=== PATIENT | male | born 1955 | race Hispanic/Latino ===

== ENCOUNTER 2020-06-22 10:13 | Emergency (ER) | payer OTHER, MEDICARE ==
[~2020-06-22] VITALS: Ht 177.8 cm; Wt 122.0 kg
--- NOTE | 2020-06-22 10:29 | Emergency Department Note ---
History of Present Illnes History of Present Illness Chief Complaint: Extremity Trauma/Pain History of Present Illness This is a 65 year old male, with a history of hypertension, hyperlipidemia, NIDDM, ASCVD status post stent placement, and TIA, who presents with a one-week history of left knee pain. Patient denies any known trauma or previous history of knee injury. Patient is complaining of pain on the lateral aspect of the left knee, that is worse with weightbearing. Patient was seen by his PCP 3 days ago, and had a Kenalog injection in the left knee, without any relief of his symptoms. He was also prescribed tramadol with acetaminophen, that has not alleviated his pain. He denies any fever, chills, nausea, vomiting, numbness, or tingling of the left lower extremity. Patient does admit to occasional left hip pain, as well. Historian: Patient, Family Member (spouse) Arrival Mode: Car Onset (how long ago): week(s) (1) Location: left knee Quality: throbbing, aching; Radiation: Reports non-radiation Severity: severe Onset quality: sudden Duration (how long): week(s) (1) Timing of current episode: constant Progression: unchanged Chronicity: new Context: Denies trauma/injury Relieving factors: none Exacerbating factors: none Associated symptoms: Denies chest pain, Denies fever/chills, Denies nausea/vomiting Treatments prior to arrival: none, other (Tramadol) Risk factors: obesity Past Medical/Family History Physician Review I have reviewed the patient's past medical and family history. Any updates have been documented here. Past Medical History Recent Fever: No Clinical Suspicion of Infectio: No New/Unexplained Change in Ment: No Past Medical History: Hypertension, Diabetes (NIDDM), TIA, Hyperlipedemia Other Medical History: ACVD s/p stent placement x 2; Past Surgical History: Cataract Removal (bilateral) Social History Smoking Cessation: Never Smoker Alcohol Use: Occasional Any Illegal Drug Use: No TB Exposure/Symptoms: No Physically hurt or threatened: No Family History Family history of heart diseas: No Other Any Pre-Existing Lines (PICC,: No Review of Systems Review of Systems Constitutional: Denies chills, Denies fever EENTM: Reports no symptoms Cardiovascular: Denies chest pain, Denies palpitations Respiratory: Denies cough, Denies dyspnea Gastrointestinal: Denies nausea, Denies vomiting Genitourinary: Reports no symptoms Musculoskeletal: Reports joint pain (left knee), Reports joint swelling (left knee); Denies back pain Integumentary: Denies change in color, Denies rash Neurological: Denies numbness, Denies tingling, Denies weakness Psychological: Reports as per HPI Endocrine: Reports as per HPI Hematological/Lymphatic: Reports as per HPI Review of other systems: All other systems negative Physical Exam Related Data Vital signs reviewed: Yes Physical Exam CONSTITUTIONAL Constitutional: Present well-developed, Present well-nourished, Present morbidly obese, Present other (in WC, due to pain on weight bearing;); Absent distressed, Absent ill appearing HENT HENT: Present normocephalic, Present atraumatic, Present oropharynx clear/moist, Present nose normal HENT L/R: Present left ext ear normal, Present right ext ear normal EYES Eyes: Reports PERRL, Reports conjunctivae normal NECK Neck: Present ROM normal PULMONARY Pulmonary: Present effort normal, Present breath sounds normal CARDIOVASCULAR Cardiovascular: Present regular rhythm, Present heart sounds normal, Present capillary refill normal, Present normal rate GASTROINTESTINAL GENITOURINARY Genitourinary: Present exam deferred SKIN Skin: Present warm, Present dry; Absent rash MUSCULOSKELETAL Musculoskeletal: Present ROM normal, Present tenderness (ttp of lateral aspect of left knee, adjacent to the lateral patella; no warmth or significant edema; no crepitus, neg anterior drawer sign; ); Absent edema NEUROLOGICAL PSYCHOLOGICAL Assessment & Plan Medical Decision Making MDM - Explained to patient and , that there is not much here today in the ER, to further evaluate his knee pain. An x-ray is unlikely to be helpful. Patient's has already received a steroid injection in the left knee, and he is a diabetic, so systemic steroids can be problematic. I contacted Dr. Chana Segura's office, Orthopedics, who can see patient in his office tomorrow. X-rays were deferred, as they will be done with the orthopedic office tomorrow. An ice pack was applied to the left knee here in the ED, and secured by an Drew wrap, which provided significant relief of his pain. Other medications, per discharge instructions. - Recommend that you apply ice to the left knee for 15-20 minutes multiple times throughout the day, to help with pain and inflammation. - He may take either the tramadol or the Tylenol 3, as needed for pain. - Recommend that you start the Gabapentin 100 mg - 3 times per day, to better help manage the pain. This medication may make you drowsy, and that side effects should improve after several days. If the medication makes you too sleepy during the day, you may take 2 tablets at bedtime for 3 days, then increase to 3 tablets at bedtime. - Follow up with Orthopedics, Dr. Chana Segura, at 11:30 am tomorrow, for futher evaluation of your pain. See your d/c papers, for contact information. Assessment & Plan Final Impression: (1) Knee pain, left (2) Diabetes (3) History of ASCVD (4) Hx of chcf use of blood thinners (5) Hypertension (6) Hyperlipidemia Depart Disposition: HOME, SELF-intermediate Meds Active Scripts Gabapentin (GABAPENTIN) 100 Mg Capsule, 1 TAB PO TID for pain, #90 TAB 0 Refills Prov:TORRIE ORNELAS MD 06/22/20 Acetaminophen/Codeine* (TYLENOL # 3*) 1 Ea Tab, 1-2 TAB PO Q6H PRN for pain and inflammation, #20 TAB 0 Refills Prov:TORRIE ORNELAS MD 06/22/20 TORRIE ORNELAS MD Jun 22, 2020 10:29
[2020-06-22] MEDS ORDERED: TYLENOL # 31 EA PO (11:13)
[2020-06-22] MEDS ORDERED: GABAPENTIN100 MG PO (11:15)
--- OUTSIDE RECORDS SUMMARY | 2020-06-22 11:19 | XMS REPORT | Clinical Summary ---
Author Author SELVIN Sojo StudiosMadison Memorial HospitalRepair ReportOrlando Health [facility] Address Unknown Phone Unavailable Care Team Providers Care Tree Warden Name Role Phone Og Gomez MD PCP Allergies Comments Active Allergy Reactions Severity Noted Date Penicillins Rash Low 04/23/2019 Medications End Date Status Medication Sig Dispensed Refills Start Date Active aspirin 81 MG chewable Take 81 mg by 0 tablet mouth daily. Active atorvastatin (LIPITOR) 40 Take 40 mg by 0 MG tablet mouth daily. Active metFORMIN (GLUCOPHAGE) Take 1,000 mg 0 1000 MG tablet by mouth 2 (two) times daily with breakfast and dinner. Active glipiZIDE (GLUCOTROL) 10 Take 10 mg by 0 MG tablet mouth daily . Active linaGLIPtin (TRADJENTA) 5 Take 5 mg by 0 mg Tab mouth daily. Active icosapent ethyl (VASCEPA) Take 2 g by 0 1 gram Cap mouth 2 (two) times daily. Active cholecalciferol, vitamin Take by 0 D3, 2,000 unit Cap mouth. Active telmisartan (MICARDIS) 80 Take 80 mg by 0 MG tablet mouth daily. Active ticagrelor (BRILINTA) 90 Take 1 tablet 180 tablet 4 04/24/201 mg Tab tablet (90 mg total) 9 by mouth 2 (two) times daily. Active Problems Problem Noted Date Ischemia of anterior segment 04/24/2019 Myocardial ischemia 04/24/2019 Positive cardiac stress test 04/24/2019 Overview: Severe anterior ischemia Social History Date Tobacco Use Types Packs/Day Years Used Former Smoker Smokeless Tobacco: Never Used Drinks/Week oz/Week Comments Alcohol Use once per week Yes Sex Assigned at Date Recorded Not on file Last Filed Vital Signs Not on file Plan of Treatment Health Maintenance Due Date Last Done Comments COLON CANCER SCREENING 1955 COLONOSCOPY LIPID PANEL 06/02/2017 06/02/2014 PNEUMOCOCCAL 65+ YRS (1 2020 of 1 - [id number]) INFLUENZA VACCINE (#1) 2020 Implants Device Identifier Shelf Expiration Date Model / Serial / L ot Implanted Type Area Manufactur er [id number] 02/03/2021 [id number] / / [id number] Stent Synergy Otw [id number] IMPLANTS Left: Coronary GATO STON [id number] - [id number] SCI:INTERV Implanted: Qty: 1 on 04/23/2019 by CARDIOLOGY Adonis Heaton MD at [facility] Results Not on fileafter 06/22/2019 Insurance Type Payer Benefit Subscriber ID Effective Phone Address Plan / Dates Group Medicare MEDICARE MEDICARE [id number] [id number] PART A resent HMO/POS CIGNA - MGD CARE CIGNA [id number] 2015- HMO/POS/OP Present EN ACCESS [id number] Advance Directives For more information, please contact: [phone] Date Inactivated Comments Code Status Date Activated 04/24/2019 1:59 PM Full Code 04/23/2019 6:40 AM This code status was determined by: Patient
--- OUTSIDE RECORDS SUMMARY | 2020-06-22 11:19 | XMS REPORT | Continuity of Care Document ---
Author Author [facility] t Organization [facility] Address [address] [place] [address] Phone Unavailable Care Team Providers Care Infrastructure Architect Name Role Phone Jason VALADEZ, Og PCP KELLI HUNTER Attphys Unavailable KELLI HUNTER Admphys Unavailable Problems Condition Name Condition Details Condition Category Status Onset Date Resolution Date Last Treatment Date Treating Clinician Comments Source Ischemia of anterior segment Ischemia of anterior segment Disease Active 2019-04-24 00:00:00 [facility] Myocardial ischemia Myocardial ischemia Disease Active 2019-04-24 00:00 :00 [facility] [place] [facility] Positive cardiac stress test Positive cardiac stress test Disease Active 2019-04-24 00:00:00 Overview: Severe ante rior ischemia [facility] Allergies, Adverse Reactions, Alerts Allergy Name Allergy Type Status Severity Reaction(s) Onset Date Inacti ve Date Treating Clinician Comments Source Penicillins Drug Allergy Active Rash 2019-04-23 00:00:00 [facility] Social History Social Habit Start Date Stop Date Quantity Comments Source Sex Assigned At [facility] Tobacco use and exposure 2019-04-26 00:00:00 2019-04-26 00:00:00 Luis Eduardo r used [facility] Alcohol intake 2019-04-26 00:00:00 2019-04-26 00:00:00 Current drinker of alcohol (finding) [facility] Alcohol Comment 2019-04-23 00:00:00 2019-04-23 00:00:00 once per week [facility] Smoking Status Start Date Stop Date Source Former smoker 2019-04-26 00:00:00 2019-04-26 00:00:00 [facility] Medications Ordered Medication Name Filled Medication Name Start Date Stop Da te Current Medication? Ordering Clinician Indication Dosage Frequency Signature (SIG) Comments Components Source aspirin 81 MG chewable tablet 2019-04-24 11:59:18 Yes 81mg QD Take 81 mg by mouth daily. [facility] atorvastatin (LIPITOR) 40 MG tablet 2019-04-24 11:59:18 Yes 40mg QD Take 40 mg by mouth daily. [facility] metFORMIN (GLUCOPHAGE) 1000 MG tablet 2019-04-24 11:59:18 Y es 1000mg Take 1,000 mg by mouth 2 (two) times daily with breakfast and dinner. [facility] glipiZIDE (GLUCOTROL) 10 MG tablet 2019-04-24 11:59:18 Yes 10mg QD Take 10 mg by mouth daily . [facility] linaGLIPtin (TRADJENTA) 5 mg Tab 2019-04-24 11:59:18 Yes 5mg QD Take 5 mg by mouth daily. [facility] icosapent ethyl (VASCEPA) 1 gram Cap 2019-04-24 11:59:18 Ye s 2g Q.5D Take 2 g by mouth 2 (two) times daily. [facility] cholecalciferol, vitamin D3, 2,000 unit Cap 2019-04-24 11:59:18 Yes Take by mouth. [facility] telmisartan (MICARDIS) 80 MG tablet 2019-04-24 11:59:18 Yes 80mg QD Take 80 mg by mouth daily. [facility] ticagrelor (BRILINTA) 90 mg Tab tablet 2019-04-24 00:00:00 Yes 90mg Q.5D Take 1 tablet (90 mg total) by mouth 2 (two) times daily. [facility] Procedures This patient has no known procedures. Plan of Care Planned Activity Planned Date Details Comments Source Future Scheduled Test 2020-04-12 00:00:00 INFLUENZA VACCINE (#1) [code = [facility]ACCINE (#1[facility]00 PNEUMOCOCCAL 65+ Y RS (1 of 1 - [id number] PCV13) [code = PNEUMOCOCCAL 65+ YRS (1 of 1 - [id number] PCV13)] [facility] r Future Scheduled Test 2017-06-02 00:00:00 Lipid panel (proce dure) [code = 04698589] [facility] r Future Scheduled Test 1955 00:00:00 Screening for lisa gnant neoplasm of colon (procedure) [code = 213638578] [facility] Results Test Description Test Time Test Comments Results Result Comments Source POCT-GLUCOSE METER 2019-04-24 08:03:00 Test Item POC-GLUCOSE METER (BEAKER) (test code = 1538) 157 mg/dL 70-110 H TESTED AT [facility] [address] [place] [id number] 04:11:00* Test Item Value Reference Range Interpretation Comments MAGNESIUM (BEAKER) (test code = 627) 1.6 mg/dL 1.6-2.6 Specimen slightly hemolyzed BASIC METABOLIC [id number] 04:11:00* Test Item Value Reference Range Interpretation Comments SODIUM (BEAKER) (test code = 381) 137 meq/L 136-145 POTASSIUM (BEAKER) (test code = 379) 4.0 meq/L 3.5-5.1 Specimen slightly hemolyzed CHLORIDE (BEAKER) (test code = 382) 104 meq/L 98-107 CO2 (BEAKER) (test code = 355) 23 meq/L 22-29 BLOOD UREA NITROGEN (BEAKER) (test code = 354) 18 mg/dL 7-21 CREATININE (BEAKER) (test code = 358) 1.15 mg/dL 0.57-1.25 Specimen slightly hemolyzed GLUCOSE RANDOM (BEAKER) (test code = 652) 137 mg/dL 70-105 H CALCIUM (BEAKER) (test code = 697) 9.3 mg/dL 8.4-10.2 EGFR (BEAKER) (test code = 1092) 64 mL/min/1.73 sq m ESTIMATED GFR IS NOT ACCURATE CREATININE CLEARANCE IN PREDICTING GLOMERULAR FILTRATION RATE. ESTIMATED GFR IS NOT APPLICABLE FOR DIALYSIS PATIENTS. CBC (HEMOGRAM ONLY)2019-04-24 03:44:00* Test Item Value Reference Range Interpretation Comments WHITE BLOOD CELL COUNT (BEAKER) (test code = 775) 10.9 K/ L 3.5- 10.5 H RED BLOOD CELL COUNT (BEAKER) (test code = 761) 3.99 M/ L 4.63-6 .08 L HEMOGLOBIN (BEAKER) (test code = 410) 12.0 GM/DL 13.7-17.5 L HEMATOCRIT (BEAKER) (test code = 411) 35.4 % 40.1-51.0 L MEAN CORPUSCULAR VOLUME (BEAKER) (test code = 753) 88.7 fL 79. 0-92.2 MEAN CORPUSCULAR HEMOGLOBIN (BEAKER) (test code = 751) 30.1 pg 25.7-32.2 MEAN CORPUSCULAR HEMOGLOBIN CONC (BEAKER) (test code = 752) 33.9 GM/DL 32.3-36.5 RED CELL DISTRIBUTION WIDTH (BEAKER) (test code = 412) 13.1 % 11.6-14.4 PLATELET COUNT (BEAKER) (test code = 756) 202 K/CU MM 150-450 MEAN PLATELET VOLUME (BEAKER) (test code = 754) 10.3 fL 9.4-12 .4 NUCLEATED RED BLOOD CELLS (BEAKER) (test code = 413) 0 /100 WBC 0 -0 POCT-GLUCOSE [id number] 21:53:00* Test Item Value Reference Range Interpretation Comments POC-GLUCOSE METER (BEAKER) (test code = 1538) 137 mg/dL 70-110 H TESTED AT [facility] [address] [facility] [address] [id number] 18:19:00* Test Item Value Reference Range Interpretation Comments PARTIAL THROMBOPLASTIN TIME (BEAKER) (test code = 760) 80.2 seconds 22.5-36.0 H Draw baseline aPTT prior to infusionCBC (HEMOGRAM ONLY)2019-04-23 18:14:00* Test Item Value Reference Range Interpretation Comments WHITE BLOOD CELL COUNT (BEAKER) (test code = 775) 8.5 K/ L 3.5- 10.5 RED BLOOD CELL COUNT (BEAKER) (test code = 761) 3.72 M/ L 4.63-6 .08 L HEMOGLOBIN (BEAKER) (test code = 410) 11.3 GM/DL 13.7-17.5 L HEMATOCRIT (BEAKER) (test code = 411) 32.8 % 40.1-51.0 L MEAN CORPUSCULAR VOLUME (BEAKER) (test code = 753) 88.2 fL 79. 0-92.2 MEAN CORPUSCULAR HEMOGLOBIN (BEAKER) (test code = 751) 30.4 pg 25.7-32.2 MEAN CORPUSCULAR HEMOGLOBIN CONC (BEAKER) (test code = 752) 34.5 GM/DL 32.3-36.5 RED CELL DISTRIBUTION WIDTH (BEAKER) (test code = 412) 13.2 % 11.6-14.4 PLATELET COUNT (BEAKER) (test code = 756) 184 K/CU MM 150-450 MEAN PLATELET VOLUME (BEAKER) (test code = 754) 10.4 fL 9.4-12 .4 NUCLEATED RED BLOOD CELLS (BEAKER) (test code = 413) 0 /100 WBC 0 -0 [id number] 14:48:00* Test Item Value Reference Range Interpretation Comments ACTIVATED CLOTTING TIME (BEAKER) (test code = 441) 412 sec Reference Range: 74-137 seconds, Baseline/TESTED AT [facility] [address] [facility] [address] BASIC METABOLIC [id number] 08:03:00* Test Item Value Reference Range Interpretation Comments SODIUM (BEAKER) (test code = 381) 138 meq/L 136-145 POTASSIUM (BEAKER) (test code = 379) 3.9 meq/L 3.5-5.1 CHLORIDE (BEAKER) (test code = 382) 106 meq/L 98-107 CO2 (BEAKER) (test code = 355) 26 meq/L 22-29 BLOOD UREA NITROGEN (BEAKER) (test code = 354) 23 mg/dL 7-21 H CREATININE (BEAKER) (test code = 358) 1.26 mg/dL 0.57-1.25 H GLUCOSE RANDOM (BEAKER) (test code = 652) 111 mg/dL 70-105 H CALCIUM (BEAKER) (test code = 697) 9.0 mg/dL 8.4-10.2 EGFR (BEAKER) (test code = 1092) 58 mL/min/1.73 sq m ESTIMATED GFR IS NOT ACCURATE CREATININE CLEARANCE IN PREDICTING GLOMERULAR FILTRATION RATE. ESTIMATED GFR IS NOT APPLICABLE FOR DIALYSIS PATIENTS. PROTHROMBIN [id number] 07:57:00* Test Item Value Reference Range Interpretation Comments PROTIME (BEAKER) (test code = 759) 13.3 seconds 11.9-14.2 INR (BEAKER) (test code = 370) 1.1 <=5.9 Effective 01/07/2019: PT Reference Range ChangeNew: 11.9-14.2 Previous: 11.7-14. 7RECOMMENDED COUMADIN/WARFARIN INR THERAPY RANGESSTANDARD DOSE: 2.0-3.0 Include s: PROPHYLAXIS for venous thrombosis, systemic embolization; TREATMENT for venou s thrombosis and/or pulmonary embolus.HIGH RISK: Target INR is 2.5-3.5 for patie nts wiht mechanical heart valves.Within 24 hours, if on [id number] 07:57:00* Test Item Value Reference Range Interpretation Comments PARTIAL THROMBOPLASTIN TIME (BEAKER) (test code = 760) 31.7 seconds 22.5-36.0 Within 24 hours, if on CoumadinCBC (HEMOGRAM ONLY)2019-04-23 07:22:00* Test Item Value Reference Range Interpretation Comments WHITE BLOOD CELL COUNT (BEAKER) (test code = 775) 7.4 K/ L 3.5- 10.5 RED BLOOD CELL COUNT (BEAKER) (test code = 761) 3.79 M/ L 4.63-6 .08 L HEMOGLOBIN (BEAKER) (test code = 410) 11.4 GM/DL 13.7-17.5 L HEMATOCRIT (BEAKER) (test code = 411) 33.8 % 40.1-51.0 L MEAN CORPUSCULAR VOLUME (BEAKER) (test code = 753) 89.2 fL 79. 0-92.2 MEAN CORPUSCULAR HEMOGLOBIN (BEAKER) (test code = 751) 30.1 pg 25.7-32.2 MEAN CORPUSCULAR HEMOGLOBIN CONC (BEAKER) (test code = 752) 33.7 GM/DL 32.3-36.5 RED CELL DISTRIBUTION WIDTH (BEAKER) (test code = 412) 13.3 % 11.6-14.4 PLATELET COUNT (BEAKER) (test code = 756) 192 K/CU MM 150-450 MEAN PLATELET VOLUME (BEAKER) (test code = 754) 10.3 fL 9.4-12 .4 NUCLEATED RED BLOOD CELLS (BEAKER) (test code = 413) 0 /100 WBC 0 -0
== END 2020-06-22 11:35 | disposition home or self-care (01) ==
LOC: FSED 10:37
DX: M25.562 Pain in left knee (principal); I10 Essential (primary) hypertension; E11.9 Type 2 diabetes mellitus without complications; E78.5 Hyperlipidemia, unspecified; Z79.01 Long term (current) use of anticoagulants; Z86.79 Personal history of other diseases of the circulatory system; Z95.5 Presence of coronary angioplasty implant and graft; Z86.73 Personal history of transient ischemic attack (TIA), and cerebral infarction without residual deficits
CPT/HCPCS: 99283

== ENCOUNTER 2024-04-12 09:59 | Emergency (ER) | payer OTHER, MEDICARE ==
[~2024-04-12] VITALS: Ht 177.8 cm; Wt 130.3 kg
[~2024-04-12 09:59] MED LIST: GABAPENTIN100 MG PO; TYLENOL # 31 EA PO
[2024-04-12 11:23] VITALS: PULSE 71; RESP 18; TEMP 98; O2SAT 99
[2024-04-12] MEDS ORDERED: VITAMIN D350 MC1 (12:02)
[2024-04-12] MEDS ORDERED: TIMOPTIC 0.5%1 EACH OU (12:02)
[2024-04-12] MEDS ORDERED: VASCEPA1 GM (12:02)
[2024-04-12] MEDS ORDERED: CLOPIDOGREL75 MG PO (12:02)
[2024-04-12] MEDS ORDERED: JANUVIA100 MG PO (12:02)
[2024-04-12] MEDS ORDERED: FLOMAX0.4 MG PO (12:02)
[2024-04-12] MEDS ORDERED: GLIPIZIDE5 MG PO (12:02)
[2024-04-12] MEDS ORDERED: ATORVASTATIN CA20 MG PO (12:02)
[2024-04-12] MEDS ORDERED: MICARDIS80 MG PO (12:02)
[2024-04-12] MEDS ORDERED: METFORMIN HCL500 M2 PO (12:02)
[2024-04-12] MEDS ORDERED: OMEPRAZOLE40 MG PO (12:02)
== END 2024-04-12 11:23 | disposition home or self-care (01) ==
LOC: FSED 10:06
DX: M25.572 Pain in left ankle and joints of left foot (principal); I87.2 Venous insufficiency (chronic) (peripheral); I10 Essential (primary) hypertension; E11.9 Type 2 diabetes mellitus without complications; E78.5 Hyperlipidemia, unspecified; Z86.73 Personal history of transient ischemic attack (TIA), and cerebral infarction without residual deficits; Z95.5 Presence of coronary angioplasty implant and graft
CPT/HCPCS: 99283